=== PATIENT | male | born 1970 | race African-American/Black ===

== ENCOUNTER 2018-07-25 10:12 | Day surgery (SDC) | payer OTHER ==
[2018-07-23 15:56] VITALS: BMI 32.3
[2018-07-25] MEDS ORDERED: SODIUM CHLORIDE 0.9% P/F 10 ML VIAL IJ ONE (11:10)
[2018-07-25] MEDS ORDERED: BUPIVACAINE HCL/PF 0.5% (5MG/ML) 10 ML VIAL ONE ×2 (11:10→11:55)
[2018-07-25] MEDS ORDERED: LIDOCAINE HCL 1% PRESERVATIVE FREE - 30ML VIAL ONE (11:10)
--- NOTE | 2018-07-25 11:25 | HP ---
[facility]ellite [facility] - Chief Complaint Chief Complaint: right knee pain - Past Medical History Allergies/Adverse Reactions: Allergies Allergy/AdvReac Type Severity Reaction Status Date / Time No Known Allergies Allergy Verified 07/25/18 10:42 - Current Medications Current Medications: Home Medications Medication Instructions Recorded Albuterol Sulfate [Proair Hfa] 8.5 gm IH DAILY 07/23/18 Amlodipine Besylate [Norvasc -] 5 mg PO DAILY 07/23/18 Levocetirizine Dihydrochloride 5 mg PO HS 07/23/18 Montelukast Na [Singulair -] 10 mg PO HS 07/23/18 Multivitamins [Tab-A-Vit -] 1 tab PO DAILY 07/23/18 Oxycodone HCl/Acetaminophen 1 tab PO Q6H #20 tab MDD 4 07/25/18 [Percocet 5-325 mg Tablet -] Satellite Physical Exam - Physical Examination Vital Signs: Vital Signs Period Temp Pulse Resp BP Sys/Demarco Pulse Ox Last 24 Hr 98.6 F 80 16 137/88 98-98 General Appearance: Well Nourished, Well Developed, Alert & Oriented x3 ENT: Clear Lung: Normal air movement Heart: Regular rate & rhythm Extremities: Other (right knee- + swelling, + ttp ,decr rom, + mcmurrays, nvi MRI + mt) Neurological: Intact, Alert, Oriented Satellite Impression/Plan - Impression/Plan Impression: right knee internal derangement Operative Procedure: right knee arthroscopy Date to be Performed: 07/25/18
[2018-07-25] MEDS ORDERED: MIDAZOLAM HCL 2 MG/2 ML SINGLE DOSE VIAL ONE (11:35)
[2018-07-25] MEDS ORDERED: PROPOFOL 20 ML ONE (11:35)
[2018-07-25] MEDS ORDERED: oxyCODONE HCL 5 MG TABLET PO PRN ×2 (12:01)
[2018-07-25] MEDS ORDERED: ONDANSETRON 4 MG/2 ML VIAL IVPUSH PRN (12:01)
[2018-07-25] MEDS ORDERED: LACTATED RINGERS SOLUTION 1,000 ML IV SCH (12:15)
[2018-07-25] MEDS ORDERED: ePHEDrine SULFATE 50 MG/1 ML AMPULE ONE (12:20)
--- NOTE | 2018-07-25 12:42 | OP ---
Operative Note - Note: Operative Date: 07/25/18 Pre-Operative Diagnosis: internal derangement right knee Operation: right knee arthroscopy and partial MM and LM and chondroplasty trochlea Post-Operative Diagnosis: Same as Pre-op Surgeon: Brent Major Estimated Blood Loss (mls): 0 Operative Report Dictated: Yes
[2018-07-25 14:03] VITALS: PULSE 78; TEMP 98
[2018-07-25 15:48] VITALS: BP 121/67
--- NOTE | 2018-07-25 22:28 | OP ---
DATE OF OPERATION: 07/25/2018 PREOPERATIVE DIAGNOSIS: Internal derangement, right knee. POSTOPERATIVE DIAGNOSIS: Internal derangement, right knee. PROCEDURE: Arthroscopy right knee, partial medial and lateral meniscectomy, and chondromalacia of the trochlea. SURGICAL ATTENDING: Brent Major MD ANESTHESIA: LMA. CLOSURES: 4-0 nylon. COMPLICATIONS: None. CONDITION: To recovery room in stable condition. DESCRIPTION OF PROCEDURE: The patient was taken to the operating room on July 25, 2018. General anesthesia with LMA was administered by the anesthesiologist. The right lower extremity was prepped and draped in the usual sterile fashion. Medial and lateral infrapatellar port sites were made with 15 blade with a blunt trocar. The scope was placed in the lateral infrapatellar port up to suprapatellar pouch. The knee was insufflated with a cocktail of 10 mL of 1% lidocaine, 10 mL of 0.5% Marcaine, and 20 mL of arthroscopic saline. After the anesthetic was allowed to work, the procedure was performed. The pouch was visualized to be clean. The medial and lateral gutters were visualized to be clean. The undersurface of the patella was found to be intact. The trochlea had some grade 2-3 changes, which was debrided back to smooth and stable articular cartilage using arthroscopic shaver. With valgus stress on the knee, the medial compartment was entered. The medial meniscus was probe and found to have a mid substance flap tear of its meniscus. This was debrided back to normal, stable meniscal tissue using a meniscal biter and arthroscopic shaver. The medial femoral condyle was run and found to be intact as was the medial tibial plateau. At 90 degrees, the ACL was visualized and probed and found to be intact. In a figure-4 position, lateral compartment was entered. Lateral meniscus was visualized and probed and found to have a radial tear of its midportion. This was debrided back to normal, stable meniscal tissue with meniscal biter and arthroscopic shaver. Lateral and femoral condyles were run and found to be intact as was the lateral tibial plateau. The knee was irrigated with copious amounts of irrigation. The port was closed using 4-0 nylon. Prior to closure, 20 mL of 0.5% Marcaine was infused into the knee for postoperative analgesia. A sterile pressure dressing was placed over the knee. The patient was awakened from anesthesia and transferred to recovery in stable condition with no complications. Estimated blood loss negligible. Eva [id number]
== END 2018-07-25 15:30 | disposition home or self-care (01) ==
LOC: FASU 10:12
PROVIDERS: ATTEND Orthopaedic Surgery
PROC: 0SBC4ZZ Excision of Right Knee Joint, Percutaneous Endoscopic Approach (ICD-10-PCS; 2018-07-25)
PROC: 0SBC4ZZ Excision of Right Knee Joint, Percutaneous Endoscopic Approach (ICD-10-PCS; principal; 2018-07-25 12:06)
DX: M23.300 Other meniscus derangements, unspecified lateral meniscus, right knee (principal)
CPT/HCPCS: 94760